=== PATIENT | male | born 1955 | race Caucasian/White ===

== ENCOUNTER 2021-02-13 11:04 | Emergency (ER) | payer MEDICARE, BC ==
--- NOTE | 2021-02-13 11:30 | ED ---
General Adult HPI - General Chief complaint: Extremity Injury, Upper Stated complaint: Dislocated shoulder Time Seen by Provider: 02/13/21 11:29 Source: patient Mode of arrival: ambulatory Limitations: no limitations - History of Present Illness Initial comments: Patient presents to the ED (patient states that he was drove here by a friend today) stating that he believes that he dislocated his right shoulder this morning. Patient states that he has dislocated his right shoulder once in the past about 12 years ago. Patient states that he was helping move about today when he felt his right shoulder dislocate, and he states that he has been having right shoulder pain since then. Patient states that he did not require sedation with his prior shoulder reduction. Patient states that he last ate or drank anything about an hour and a half ago, at which time he states that he had a donut and a small amount of coffee. Patient denies any other injury or site of pain, focal numbness or weakness, headache, chest pain, dyspnea, dizziness, abdominal pain, nausea or vomiting, or any other symptoms or complaints. - Related Data Allergies Allergy/AdvReac Type Severity Reaction Status Date / Time No Known Allergies Allergy Verified 02/13/21 11:22 Review of Systems ROS Statement: Those systems with pertinent positive or pertinent negative responses have been documented in the HPI. ROS Other: All systems not noted in ROS Statement are negative. Past Medical History Past Medical History: Hyperlipidemia, Myocardial Infarction ([place]) History of Any Multi-Drug Resistant Organisms: None Reported Past Surgical History: Heart Catheterization With Stent Past Psychological History: No Psychological Hx Reported Smoking Status: Never smoker Past Alcohol Use History: Occasional Past Drug Use History: None Reported General Exam Limitations: no limitations General appearance: alert, in no apparent distress Head exam: Present: atraumatic, normocephalic Eye exam: Present: normal appearance, EOMI ENT exam: Present: mucous membranes moist Neck exam: Present: other (Trachea is in midline). Absent: tenderness Respiratory exam: Present: normal lung sounds bilaterally. Absent: respiratory distress, wheezes, rales, rhonchi, stridor Cardiovascular Exam: Present: regular rate, normal rhythm, normal heart sounds, other (normal radial pulses bilaterally) Extremities exam: Present: other (Right shoulder deformity and generalized tenderness; no AC joint or clavicular tenderness; normal sensation over right deltoid region) Neurological exam: Present: alert, oriented X3, other (Patient is neurovascularly intact and right distal arm). Absent: motor sensory deficit Psychiatric exam: Present: normal affect, normal mood Skin exam: Present: warm, dry, intact, normal color Course Vital Signs 02/13/21 11:18 Temperature 97.7 F Pulse Rate 63 Respiratory 18 Rate Blood Pressure 142/83 O2 Sat by Pulse 97 Oximetry Procedures - Orthopedic Joint Reduction Joint #1 Consent Obtained: written consent Side: right Joint Reduction Location: shoulder Analgesia: other (IV Dilaudid) Shoulder Technique Used (if applicable): traction/counter-traction, external rotation Post-Reduction Neuro Exam: intact Post-Reduction Vascular Exam: intact Post Reduction X-Ray Obtained: Yes Post Reduction X-Ray Results: reduced Patient Tolerated Procedure: well, no complications Additional Comments: Right arm sling was applied Medical Decision Making - Medical Decision Making Patient states that his pain has improved status post right shoulder dislocation reduction. Patient is neurovascularly intact in his right upper extremity status post right shoulder dislocation reduction. Patient's post reduction right shoulder x-rays show good reduction and no evidence of fracture. Patient was counseled about shoulder dislocations, and he was clearly explained return and follow-up instructions. Patient feels comfortable with this plan. Patient to get a ride home from the ED today. - Radiology Data Radiology results: report reviewed (Right shoulder x-rays: Anterior inferior dislocation of right glenohumeral joint), image reviewed (Post reduction right shoulder x-rays: Good reduction of the right glenohumeral joint dislocation, no fracture is seen) Disposition Clinical Impression: Recurrent dislocation, right shoulder Disposition: HOME SELF-CARE Condition: Stable Instructions (If sedation given, give patient instructions): Shoulder Dislocation (ED) Additional Instructions: Return to the ER immediately should you develop new or worsening pain, numbness or weakness, feeling dizzy or faint, shortness of breath, or new or worsening symptoms. Follow up closely with your primary care provider, as well as with orthopedic surgery. Is patient prescribed a controlled substance at d/c from ED?: No Referrals: None,Stated [REFERRING] - 1-2 days Sidney Cota DO [Doctor of Osteopathic Medicine] - 1-2 days Time of Disposition: 13:34
[2021-02-13] MEDS ORDERED: LORazepam 2 MG/ML INJ IV STA (11:37)
[2021-02-13] MEDS ORDERED: HYDROmorphone 1 MG/ML 1 ML SYRINGE IVP STA (11:37)
--- NOTE | 2021-02-13 11:39 | XR ---
Right shoulder. HISTORY: Pain. COMPARISON: None. TECHNIQUE: 3 views the right shoulder were obtained. There is an anterior inferior dislocation of the glenohumeral joint. The acromioclavicular joint is n ormal. There is no fracture or focal intraosseous abnormality. There is no radiopaque foreign body or abnormal soft tissue calcification. IMPRESSION: Anterior inferior dislocation of the right glenohumeral joint.
[2021-02-13] MEDS ORDERED: HYDROmorphone 0.5 MG/0.5 ML SYRINGE IVP STA (12:23)
--- NOTE | 2021-02-13 12:56 | XR ---
Limited right shoulder. HISTORY: Post reduction dislocated glenohumeral joint. COMPARISON: 02/13/2021 prior to this exam. TECHNIQUE: Single portable AP view the right shoulder was obtained. There has been reduction of the glenohumeral dislocation. There is no evidence of fracture. There is mild degenerative changes acromioclavicular joint and mild subacromial spur.
[2021-02-13 13:55] VITALS: BP 137/86; PULSE 80; RESP 16; TEMP 98.2
== END 2021-02-13 13:55 | disposition home or self-care (01) ==
LOC: EC 11:04
DX: S43.004A Unspecified dislocation of right shoulder joint, initial encounter (principal); M24.411 Recurrent dislocation, right shoulder; E78.5 Hyperlipidemia, unspecified; I25.2 Old myocardial infarction; X58.XXXA Exposure to other specified factors, initial encounter
CPT/HCPCS: 99283; 96374; 96375; 96376; 23650; 73020; 73030; J2060; J1170 ×2